=== PATIENT | male | born 1955 | race Caucasian/White ===

== ENCOUNTER → 2016-10-21 | Outpatient (REF) ==
[~2016-10-21] MED LIST: AMOXICILLIN 8751 TAB PO; ASPIR-LOW81 MG PO; ASPIRIN 81M81 MG/TA2 PO; CELEBREX 200MG200 MG PO; CIPRO HC OTIC S10 ML OT; CYMBALTA 60MG60 MG PO; FENTANYL 50MCG TOP; LISINOPRIL20 MG PO; LORTAB 5/500 501 TAB PO; LYRICA 75MG CAP75 MG PO; PRINIVIL40 MG PO; ROSERUM; TRAMADOL50 MG PO; TYLENOL EXTRA500 M1 PO; ULTRAM 50MG TAB50 MG PO; imipramine
== END ==
LOC: ZLAB.WCH 11:08
DX: Z01.89 Encounter for other specified special examinations (principal)
CPT/HCPCS: G0103

== ENCOUNTER → 2017-09-25 | Outpatient (REF) | LOC: ZLAB.WCH 16:36 | DX: Z01.89 Encounter for other specified special examinations (principal) ==

== ENCOUNTER → 2017-10-17 | Outpatient (CLI) | payer BC, MEDICARE | LOC: MHCPAIN 15:01 | DX: G89.29 Other chronic pain (principal); M54.12 Radiculopathy, cervical region; M47.812 Spondylosis without myelopathy or radiculopathy, cervical region; M25.572 Pain in left ankle and joints of left foot | CPT/HCPCS: G0463 ==

== ENCOUNTER → 2017-10-24 | Outpatient (CLI) | payer BC, MEDICARE | LOC: COL.RAD 13:48 | DX: M47.22 Other spondylosis with radiculopathy, cervical region (principal); M48.02 Spinal stenosis, cervical region; M25.572 Pain in left ankle and joints of left foot; Z96.698 Presence of other orthopedic joint implants ==

== ENCOUNTER → 2017-11-15 | Outpatient (CLI) | payer BC, MEDICARE | LOC: MHCPAIN 15:29 | DX: G89.29 Other chronic pain (principal); M50.90 Cervical disc disorder, unspecified, unspecified cervical region; M54.12 Radiculopathy, cervical region; M25.572 Pain in left ankle and joints of left foot | CPT/HCPCS: G0463 ==

== ENCOUNTER → 2017-12-26 | Outpatient (CLI) | payer BC, MEDICARE | LOC: MHCPAIN 15:17 | DX: G89.29 Other chronic pain (principal); M50.90 Cervical disc disorder, unspecified, unspecified cervical region; M54.12 Radiculopathy, cervical region; M25.572 Pain in left ankle and joints of left foot; M25.511 Pain in right shoulder | CPT/HCPCS: G0463 ==

== ENCOUNTER → 2018-01-09 | Outpatient (CLI) | payer BC, MEDICARE | LOC: COL.RAD 01-02 14:45 | DX: M75.111 Incomplete rotator cuff tear or rupture of right shoulder, not specified as traumatic (principal); M89.311 Hypertrophy of bone, right shoulder; S46.001A Unspecified injury of muscle(s) and tendon(s) of the rotator cuff of right shoulder, initial encounter ==

== ENCOUNTER → 2018-01-24 | Outpatient (CLI) | payer BC, MEDICARE | LOC: MHCPAIN 15:07 | DX: G89.29 Other chronic pain (principal); M50.90 Cervical disc disorder, unspecified, unspecified cervical region | CPT/HCPCS: G0463 ==

== ENCOUNTER → 2018-02-27 | Outpatient (CLI) | payer BC, MEDICARE | LOC: MHCPAIN 15:13 | DX: G89.29 Other chronic pain (principal); M50.90 Cervical disc disorder, unspecified, unspecified cervical region; M54.12 Radiculopathy, cervical region | CPT/HCPCS: G0463 ==

== ENCOUNTER → 2018-03-20 | Outpatient (CLI) | payer BC, MEDICARE | LOC: MHCPAIN 15:07 | DX: G89.29 Other chronic pain (principal); M50.90 Cervical disc disorder, unspecified, unspecified cervical region; M54.12 Radiculopathy, cervical region; M54.81 Occipital neuralgia; R51 Headache | CPT/HCPCS: G0463 ==

== ENCOUNTER → 2018-04-05 | Outpatient (CLI) | payer BC, MEDICARE | LOC: MHCPAIN 07:41 | DX: M54.12 Radiculopathy, cervical region (principal); R51 Headache | CPT/HCPCS: J0461 ==

== ENCOUNTER → 2018-04-24 | Outpatient (CLI) | payer BC, MEDICARE | LOC: MHCPAIN 11:10 | DX: G89.29 Other chronic pain (principal); M50.90 Cervical disc disorder, unspecified, unspecified cervical region; M54.81 Occipital neuralgia; R51 Headache | CPT/HCPCS: G0463 ==

== ENCOUNTER → 2018-04-26 | Outpatient (CLI) | payer BC, MEDICARE | LOC: MHCPAIN 08:42 | DX: M54.12 Radiculopathy, cervical region (principal); R51 Headache ==

== ENCOUNTER → 2018-05-03 | Outpatient (CLI) | payer BC, MEDICARE | LOC: MHCPAIN 07:40 | DX: G89.29 Other chronic pain (principal); M50.90 Cervical disc disorder, unspecified, unspecified cervical region; M54.81 Occipital neuralgia; R51 Headache | CPT/HCPCS: G0463; J1100; J2250; J3010 ==

== ENCOUNTER → 2018-07-04 | Outpatient (CLI) | payer BC, MEDICARE | LOC: MHCPAIN 09:26 | DX: G89.29 Other chronic pain (principal); M54.81 Occipital neuralgia; R51 Headache; M47.812 Spondylosis without myelopathy or radiculopathy, cervical region | CPT/HCPCS: G0463 ==

== ENCOUNTER → 2018-09-17 | Outpatient (REF) | LOC: ZLAB.WCH 16:13 | DX: Z01.89 Encounter for other specified special examinations (principal) | CPT/HCPCS: G0103 ==

== ENCOUNTER → 2018-10-02 | Outpatient (CLI) | payer BC, MEDICARE | LOC: MHCPAIN 07:43 | DX: G89.29 Other chronic pain (principal); M54.81 Occipital neuralgia; M47.812 Spondylosis without myelopathy or radiculopathy, cervical region; R51 Headache | CPT/HCPCS: G0463 ==

== ENCOUNTER → 2019-01-01 | Outpatient (CLI) | payer BC, MEDICARE | LOC: MHCPAIN 08:21 | DX: G89.29 Other chronic pain (principal); M54.81 Occipital neuralgia; R51 Headache; M47.812 Spondylosis without myelopathy or radiculopathy, cervical region | CPT/HCPCS: G0463 ==

== ENCOUNTER → 2019-04-03 | Outpatient (CLI) | payer BC, MEDICARE | LOC: MHCPAIN 08:03 | DX: G89.29 Other chronic pain (principal); M54.81 Occipital neuralgia; R51 Headache; M47.812 Spondylosis without myelopathy or radiculopathy, cervical region | CPT/HCPCS: G0463 ==

== ENCOUNTER → 2019-07-09 | Outpatient (CLI) | payer BC, MEDICARE | LOC: MHCPAIN 08:16 | DX: M54.81 Occipital neuralgia (principal); R51 Headache | CPT/HCPCS: G0463 ==

== ENCOUNTER → 2019-09-17 | Outpatient (CLI) | payer MEDICARE | LOC: MHCPAIN 09:43 | DX: M54.2 Cervicalgia (principal); R51 Headache; M25.511 Pain in right shoulder | CPT/HCPCS: G0463 ==

== ENCOUNTER → 2019-12-17 | Outpatient (CLI) | payer MEDICARE | LOC: MHCPAIN 08:01 | DX: M47.812 Spondylosis without myelopathy or radiculopathy, cervical region (principal); M54.81 Occipital neuralgia; R51 Headache; M54.2 Cervicalgia; G89.29 Other chronic pain; M25.572 Pain in left ankle and joints of left foot | CPT/HCPCS: G0463 ==

== ENCOUNTER → 2020-03-24 | Outpatient (CLI) | payer MEDICARE | LOC: MHCPAIN 08:20 | DX: M47.812 Spondylosis without myelopathy or radiculopathy, cervical region (principal); M54.2 Cervicalgia; M54.81 Occipital neuralgia; R51 Headache | CPT/HCPCS: G0463 ==

== ENCOUNTER → 2020-06-02 | Outpatient (CLI) | payer MEDICARE | LOC: COL.RAD 10:56 | DX: Z01.812 Encounter for preprocedural laboratory examination (principal); K76.0 Fatty (change of) liver, not elsewhere classified; K57.92 Diverticulitis of intestine, part unspecified, without perforation or abscess without bleeding; Z90.49 Acquired absence of other specified parts of digestive tract | CPT/HCPCS: Q9967 ==

== ENCOUNTER → 2020-08-26 | Outpatient (CLI) | payer MEDICARE | LOC: MHCPAIN 08:00 | DX: M47.812 Spondylosis without myelopathy or radiculopathy, cervical region (principal); M54.2 Cervicalgia; M54.5 Low back pain; M25.572 Pain in left ankle and joints of left foot; M79.2 Neuralgia and neuritis, unspecified | CPT/HCPCS: G0463 ==

== ENCOUNTER → 2020-12-09 | Outpatient (CLI) | payer MEDICARE | LOC: MHCPAIN 08:01 | DX: M25.572 Pain in left ankle and joints of left foot (principal); M47.812 Spondylosis without myelopathy or radiculopathy, cervical region; M54.2 Cervicalgia; M79.2 Neuralgia and neuritis, unspecified | CPT/HCPCS: G0463 ==

== ENCOUNTER → 2021-03-31 | Outpatient (CLI) | payer MEDICARE | LOC: MHCPAIN 07:54 | DX: M47.812 Spondylosis without myelopathy or radiculopathy, cervical region (principal); M54.2 Cervicalgia; M79.2 Neuralgia and neuritis, unspecified | CPT/HCPCS: G0463 ==

== ENCOUNTER → 2021-07-12 | Outpatient (CLI) | payer MEDICARE | LOC: MHCPAIN 09:35 | DX: M47.812 Spondylosis without myelopathy or radiculopathy, cervical region (principal); M54.2 Cervicalgia; M79.2 Neuralgia and neuritis, unspecified | CPT/HCPCS: G0463 ==

== ENCOUNTER → 2021-10-11 | Outpatient (CLI) | payer MEDICARE | LOC: MHCPAIN 09:21 | DX: M47.812 Spondylosis without myelopathy or radiculopathy, cervical region (principal); M54.2 Cervicalgia; M79.2 Neuralgia and neuritis, unspecified | CPT/HCPCS: G0463 ==

== ENCOUNTER → 2022-01-31 | Outpatient (CLI) | payer MEDICARE | LOC: MHCPAIN 09:29 | DX: M54.2 Cervicalgia (principal); M54.50 Low back pain, unspecified; M25.572 Pain in left ankle and joints of left foot; M47.812 Spondylosis without myelopathy or radiculopathy, cervical region; M25.562 Pain in left knee | CPT/HCPCS: G0463 ==

== ENCOUNTER → 2022-05-09 | Outpatient (CLI) | payer MEDICARE | LOC: MHCPAIN 09:13 | DX: M47.812 Spondylosis without myelopathy or radiculopathy, cervical region (principal); M54.2 Cervicalgia; M79.2 Neuralgia and neuritis, unspecified | CPT/HCPCS: G0463 ==

== ENCOUNTER → 2022-08-15 | Outpatient (CLI) | payer MEDICARE | LOC: MHCPAIN 10:02 | DX: M47.812 Spondylosis without myelopathy or radiculopathy, cervical region (principal); M79.2 Neuralgia and neuritis, unspecified; M25.572 Pain in left ankle and joints of left foot | CPT/HCPCS: G0463 ==

== ENCOUNTER → 2023-08-30 | Outpatient (CLI) | payer MEDICARE | LOC: MHCPAIN 08:00 | DX: M54.2 Cervicalgia (principal); M54.50 Low back pain, unspecified; M25.572 Pain in left ankle and joints of left foot; M79.2 Neuralgia and neuritis, unspecified | CPT/HCPCS: G0463 ==

== ENCOUNTER → 2024-02-07 | Outpatient (CLI) | payer MEDICARE | LOC: MHCPAIN 08:12 | DX: M47.812 Spondylosis without myelopathy or radiculopathy, cervical region (principal); M54.2 Cervicalgia; M79.2 Neuralgia and neuritis, unspecified | CPT/HCPCS: G0463 ==